=== PATIENT | male | born 1995 | race Two or more races ===

== ENCOUNTER 2019-07-05 21:49 | Emergency (ER) | payer OTHER ==
[~2019-07-05] VITALS: Ht 182.9 cm; Wt 72.7 kg
[2019-07-05 21:50] VITALS: BP 114/64
[2019-07-05] MEDS ORDERED: KETOROLAC 60 MG/2 ML VIAL (J1885) IM ONE (23:00)
[2019-07-05] MEDS ORDERED: MEDR4PAK PO (23:35)
[2019-07-05] MEDS ORDERED: KETO10TAB PO (23:43)
--- NOTE | 2019-07-06 08:51 | REP ---
Lumbar spine series: Five views. History: Low back pain sciatica. Findings: Lumbar vertebral body heights are preserved. Alignment is normal. No fracture or collapse is seen. Pedicles and posterior elements are intact. Facet joints are normally aligned. Sacrum and SI joints are unremarkable. Psoas margins are symmetric. There is minimal disc space narrowing L4-5. Disc spaces are otherwise preserved. Impression: No traumatic abnormality noted. Minimal disc space narrowing at L4-5. Electronically Signed by Rell Urbina MD 07/06/2019 09:11 A
== END 2019-07-05 23:56 | disposition home or self-care (01) ==
LOC: M ED 21:49
DX: M54.40 Lumbago with sciatica, unspecified side (principal)
CPT/HCPCS: 72110; 96372; 99284; J1885